=== PATIENT | male | born 1975 | race Caucasian/White ===

== ENCOUNTER 2023-04-16 09:43 | Emergency (ER) | payer MEDICAID ==
[~2023-04-16] VITALS: Ht 177.8 cm; Wt 70.0 kg
[2023-04-16 09:50] VITALS: TEMP 98.3; O2SAT 100
[2023-04-16] MEDS ORDERED: TIMOLOL MALEATE 0.5% OPHTH DROPS 5ML LEFTEYE STA (10:43)
[2023-04-16] MEDS ORDERED: PILOCARPINE HCL 2% OPHTH DROPS 15ML LEFTEYE STA (10:43)
[2023-04-16] MEDS ORDERED: BRIMONIDINE 0.2% OPHTH DROPS 5ML LEFTEYE STA (10:43)
[2023-04-16] MEDS ORDERED: ACETAZOLAMIDE 500MG ER CAPSULE PO STA (10:43)
[2023-04-16] MEDS ORDERED: ONDANSETRON 4MG ODT PO ONE ×2 (10:45→11:15)
[2023-04-16] MEDS ORDERED: POLYMYXIN B SULFATE/TMP 10ML BOTTLE LEFTEYE STA (10:58)
[2023-04-16] MEDS ORDERED: HYDROCODONE/ACETAMINOPHEN 5/325MG TABLET PO ONE ×2 (11:00→14:45)
[2023-04-16] MEDS ORDERED: HYDROCODONE/ACETAMINOPHEN 5/325MG TABLET PO NR (11:15)
[2023-04-16] MEDS ORDERED: ONDANSETRON 4MG ODT PO NR (11:15)
[2023-04-16 11:45] VITALS: BP 128/89; PULSE 97; RESP 15
[2023-04-16] MEDS ORDERED: POLY10DR LEFTEYE (14:40)
== END 2023-04-16 15:25 | disposition home or self-care (01) ==
LOC: ER 09:43
DX: H57.11 Ocular pain, right eye (principal)
CPT/HCPCS: 99284; Q0162